=== PATIENT | male | born 1975 | race African-American/Black ===

== ENCOUNTER 2023-07-24 20:17 | Inpatient (IN) | payer BC ==
[2023-07-24 21:03] LABS: #Basophils 0.1 10x3/uL (0.0-0.2); #Eosinphils 0.3 10x3/uL (0.0-0.5); #Monocytes 0.5 10x3/uL (0.0-1.1); %Basophils 0.6 % (0.0-2.0); %Eosinophils 3.8 % (0.0-6.0); %Lymphocytes 17.5 % (18.0-47.0); %Monocytes 6.1 % (0.0-10.0); %Neutrophils 71.8 % (40.0-75.0); Hematocrit 25.7 % (38.8-50.0); Hemoglobin 8.1 g/dL (13.5-17.5); Mean Corpuscular HGB CONC 31.5 g/dL (32.0-36.0); Mean Corpuscular Hemoglobin 23.1 pg (27.0-33.0); Mean Corpuscular Volume 73.2 fl (81.2-95.1); Mean Platelet Volume 12.1 fl (7.4-10.4); Platelet Count 291 10x3/uL (150-450); RBC Distribution Width 15.6 % (11.5-14.5); Red Blood Cell (RBC) Count 3.51 10x6/uL (4.32-5.72); White Blood Cell (WBC) Count 8.4 10x3/uL (3.5-10.5)
[2023-07-24 21:10] LABS: PTT 27.1 sec (22.0-33.0); Prothrombin Time 10.3 sec (9.5-12.1)
[2023-07-24 21:13] LABS: ALT (SGPT) 27 U/L (8-55); AST (SGOT) 17 U/L (5-34); Albumin 3.4 g/dL (3.5-5.0); Alkaline Phosphatase 148 U/L (40-110); Anion Gap 15 mmol/L (10-20); BUN (Urea Nitrogen) 70 mg/dL (8.9-20.6); Bilirubin, Total 0.3 mg/dL (0.2-1.2); Calc. Creatinine Clearance 0 mL/min (70-130); Calcium 8.4 mg/dL (7.8-10.44); Carbon Dioxide 21 mmol/L (22-29); Chloride 112 mmol/L (98-107); Estimated GFR 14; Glucose 142 mg/dL (70-105); Magnesium 1.9 mg/dL (1.6-2.6); Potassium 4.5 mmol/L (3.5-5.1); Protein, Total 6.4 g/dL (6.0-8.3); Sodium 143 mmol/L (136-145)
[2023-07-24 21:19] LABS: Troponin I 0.026 ng/mL (< 0.028)
[2023-07-24] MEDS ORDERED: Calcium Carbonate 500 MG ChewTAB PO PRN (22:09)
[2023-07-24] MEDS ORDERED: Dextrose 5% in Water 1,000 ML IV PRN (22:09)
[2023-07-24] MEDS ORDERED: Glucagon 1 MG/ML KIT IM PRN (22:09)
[2023-07-24] MEDS ORDERED: HYDROcodone/Acetaminophen 5/325 mg Tablet PO PRN (22:09)
[2023-07-24] MEDS ORDERED: Ondansetron PF 4 MG/2 ML Vial IVP PRN (22:09)
[2023-07-24] MEDS ORDERED: Senokot S 8.6-50 MG TAB PO PRN (22:09)
[2023-07-24] MEDS ORDERED: Dextrose 50% Abboject 50 ML SYRINGE SLOW IVP PRN (22:09)
[2023-07-24] MEDS ORDERED: Acetaminophen 325 MG TAB PO PRN (22:09)
[2023-07-24] MEDS ORDERED: Furosemide 40 MG (4 mL) VIAL ONE (22:21)
[2023-07-24] MEDS: Albumin 25% 25 GM (100 mL) BOT IVPB SCH (23:16)
[2023-07-25 00:28] VITALS: BMI 50.3
[2023-07-25] MEDS: Nitroglycerin 2% Ointment 1 INCH/1 GM Packet TOP SCH (01:31)
[2023-07-25 05:57] LABS: #Basophils 0.1 10x3/uL (0.0-0.2); #Eosinphils 0.3 10x3/uL (0.0-0.5); #Monocytes 0.7 10x3/uL (0.0-1.1); #Neutrophils 5.8 10x3/uL (1.5-8.4); %Basophils 0.6 % (0.0-2.0); %Eosinophils 3.8 % (0.0-6.0); %Monocytes 7.9 % (0.0-10.0); %Neutrophils 68.3 % (40.0-75.0); Hematocrit 23.3 % (38.8-50.0); Hemoglobin 7.4 g/dL (13.5-17.5); Mean Corpuscular HGB CONC 31.8 g/dL (32.0-36.0); Mean Corpuscular Hemoglobin 23.1 pg (27.0-33.0); Mean Corpuscular Volume 72.6 fl (81.2-95.1); Mean Platelet Volume 12.3 fl (7.4-10.4); Platelet Count 279 10x3/uL (150-450); RBC Distribution Width 15.3 % (11.5-14.5); Red Blood Cell (RBC) Count 3.21 10x6/uL (4.32-5.72); White Blood Cell (WBC) Count 8.5 10x3/uL (3.5-10.5)
[2023-07-25] MEDS: Furosemide 40 MG (4 mL) VIAL SLOW IVP SCH (05:58)
[2023-07-25 06:11] LABS: Chloride 112 mmol/L (98-107); Potassium 4.4 mmol/L (3.5-5.1); Sodium 144 mmol/L (136-145)
[2023-07-25 06:12] LABS: Anion Gap 14 mmol/L (10-20); BUN (Urea Nitrogen) 70 mg/dL (8.9-20.6); Calc. Creatinine Clearance 44 mL/min (70-130); Carbon Dioxide 22 mmol/L (22-29); Estimated GFR 15; Glucose 142 mg/dL (70-105); Magnesium 1.9 mg/dL (1.6-2.6)
[2023-07-25 06:19] LABS: Troponin I 0.019 ng/mL (< 0.028)
[2023-07-25] MEDS ORDERED: Heparin 5,000 UNITS/ML VIAL SC SCH (09:00)
[2023-07-25] MEDS: Carvedilol 25 MG TAB PO SCH (09:14)
[2023-07-25] MEDS: Ferrous Sulfate 325 MG TAB PO SCH (09:14)
[2023-07-25] MEDS: Ranolazine ER 500 MG TAB PO SCH (09:15)
[2023-07-25] MEDS: Sertraline 100 MG TAB PO SCH (09:15)
[2023-07-25] MEDS: glipiZIDE 5 MG TAB PO SCH (09:15)
[2023-07-25] MEDS: Atorvastatin Calcium 40 MG TAB PO SCH (09:15)
[2023-07-25] MEDS: Aspirin Chewable 81 MG TAB PO SCH (09:15)
[2023-07-25] MEDS: hydrALAZINE 25 MG TAB PO SCH (09:15)
[2023-07-25] MEDS: EPOETIN ALFA-EPBX (ESRD) 4,000 UNITS/ML VIAL SC SCH (10:28)
[2023-07-25] MEDS: Folic Acid/Vit B Comp W-C PO SCH (10:39)
[2023-07-25] MEDS: EPOETIN ALFA-EPBX (ESRD) 10,000 UNITS/ML VIAL SC SCH (10:39)
[2023-07-25] MEDS: Furosemide 100 MG (10 mL) VIAL SLOW IVP SCH (16:16)
[2023-07-25] MEDS: HumuLIN 70/30 (300 UNITS/3 ML VIAL) SC SCH (16:17)
[2023-07-25] MEDS: Sertraline 25 MG TAB PO SCH (20:57)
[2023-07-25] MEDS: Minoxidil 2.5 MG TAB PO SCH (20:57)
[2023-07-26 05:28] LABS: #Basophils 0.1 10x3/uL (0.0-0.2); #Eosinphils 0.4 10x3/uL (0.0-0.5); #Monocytes 0.8 10x3/uL (0.0-1.1); #Neutrophils 6.6 10x3/uL (1.5-8.4); %Basophils 0.5 % (0.0-2.0); %Eosinophils 3.9 % (0.0-6.0); %Lymphocytes 18.9 % (18.0-47.0); %Monocytes 8.1 % (0.0-10.0); %Neutrophils 68.2 % (40.0-75.0); Hematocrit 25.3 % (38.8-50.0); Hemoglobin 7.8 g/dL (13.5-17.5); Mean Corpuscular HGB CONC 30.8 g/dL (32.0-36.0); Mean Corpuscular Hemoglobin 22.1 pg (27.0-33.0); Mean Corpuscular Volume 71.7 fl (81.2-95.1); Mean Platelet Volume 11.9 fl (7.4-10.4); Platelet Count 300 10x3/uL (150-450); RBC Distribution Width 15.4 % (11.5-14.5); Red Blood Cell (RBC) Count 3.53 10x6/uL (4.32-5.72); White Blood Cell (WBC) Count 9.7 10x3/uL (3.5-10.5)
[2023-07-26 05:40] LABS: Anion Gap 14 mmol/L (10-20); BUN (Urea Nitrogen) 79 mg/dL (8.9-20.6); Calc. Creatinine Clearance 39 mL/min (70-130); Calcium 8.8 mg/dL (7.8-10.44); Carbon Dioxide 23 mmol/L (22-29); Chloride 111 mmol/L (98-107); Estimated GFR 13; Glucose 102 mg/dL (70-105); Iron 35 ug/dL (65-175); Iron Binding Capacity, Total 194 mcg/dL (261-462); Potassium 4.4 mmol/L (3.5-5.1); Sodium 144 mmol/L (136-145)
[2023-07-26 06:24] LABS: Microcytosis SLIGHT = 6-15 cells (100X) (0-5/hpf); Platelet Adequacy Comment Appears Adequate
[2023-07-26] MEDS: hydrALAZINE 25 MG TAB PO SCH ×2 (10:31→20:59)
[2023-07-26] MEDS: Ferrous Sulfate 325 MG TAB PO SCH (17:09)
[2023-07-27] MEDS: Guaifenesin DM 100-10/5 ML UDCUP PO PRN (00:35)
[2023-07-27 04:25] LABS: HBSAg Index 0.21 S/CO (0-0.99); Hep B Surf Ag Non-Reactive S/CO (NonReactive)
[2023-07-27] MEDS ORDERED: EPINEPHrine 1 MG/ML VIAL ONE (08:53)
[2023-07-27] MEDS ORDERED: Bupivacaine 0.25% HCL 30 ML VIAL ONE (08:54)
[2023-07-27] MEDS ORDERED: CEFAZOLIN 2 GM VIAL ONE (10:01)
[2023-07-27] MEDS ORDERED: fentaNYL 50 mcg/mL 1 mL Vial ONE ×2 (10:09→10:40)
[2023-07-27] MEDS ORDERED: Lidocaine 2% PF 5 ML VIAL ONE (10:09)
[2023-07-27] MEDS ORDERED: PROPOFOL 20 ML ONE ×2 (10:09→10:14)
[2023-07-27] MEDS ORDERED: ePHEDrine Sulfate 50 MG/10 ML VIAL ONE ×2 (10:29→10:52)
[2023-07-27 14:08] LABS: Hep B Core Total Ab Non-Reactive (NonReactive); Hep B Core Total Index 0.08 S/CO (0-0.79); Hep C IgG Ab Non-Reactive S/CO (NonReactive)
[2023-07-27 14:10] LABS: HBSAB Concentration 64.97 mIU/mL; Hep B Surf AB Reactive (NonReactive)
[2023-07-27] MEDS: EPOETIN ALFA-EPBX (ESRD) 10,000 UNITS/ML VIAL SC SCH ×2 (17:33→18:27)
[2023-07-27] MEDS: Tuberculin PPD 0.1 ML VIAL I-DERMAL SCH ×2 (17:33→18:29)
[2023-07-27] MEDS: HumaLOG 300 UNITS/3 ML VIAL SC PRN (22:04)
[2023-07-28 05:16] LABS: #Monocytes 0.7 10x3/uL (0.0-1.1); #Neutrophils 9.5 10x3/uL (1.5-8.4); %Basophils 0.3 % (0.0-2.0); %Eosinophils 0.1 % (0.0-6.0); %Lymphocytes 7.7 % (18.0-47.0); %Monocytes 6.1 % (0.0-10.0); %Neutrophils 85.4 % (40.0-75.0); Hematocrit 26.4 % (38.8-50.0); Hemoglobin 8.4 g/dL (13.5-17.5); Mean Corpuscular HGB CONC 31.8 g/dL (32.0-36.0); Mean Corpuscular Hemoglobin 22.8 pg (27.0-33.0); Mean Corpuscular Volume 71.7 fl (81.2-95.1); Mean Platelet Volume 12.6 fl (7.4-10.4); Platelet Count 323 10x3/uL (150-450); RBC Distribution Width 15.3 % (11.5-14.5); Red Blood Cell (RBC) Count 3.68 10x6/uL (4.32-5.72); White Blood Cell (WBC) Count 11.1 10x3/uL (3.5-10.5)
[2023-07-28 05:24] LABS: Anion Gap 15 mmol/L (10-20); BUN (Urea Nitrogen) 71 mg/dL (8.9-20.6); Calc. Creatinine Clearance 37 mL/min (70-130); Calcium 8.9 mg/dL (7.8-10.44); Carbon Dioxide 24 mmol/L (22-29); Chloride 105 mmol/L (98-107); Estimated GFR 12; Glucose 225 mg/dL (70-105); Potassium 4.8 mmol/L (3.5-5.1); Sodium 139 mmol/L (136-145)
[2023-07-28] MEDS: Losartan 25 MG TAB PO SCH (08:57)
[2023-07-29 05:17] LABS: Anion Gap 15 mmol/L (10-20); BUN (Urea Nitrogen) 55 mg/dL (8.9-20.6); Calc. Creatinine Clearance 42 mL/min (70-130); Calcium 8.9 mg/dL (7.8-10.44); Carbon Dioxide 25 mmol/L (22-29); Chloride 105 mmol/L (98-107); Estimated GFR 14; Glucose 167 mg/dL (70-105); Potassium 4.5 mmol/L (3.5-5.1); Sodium 140 mmol/L (136-145)
[2023-07-29 05:33] LABS: #Basophils 0.1 10x3/uL (0.0-0.2); #Eosinphils 0.2 10x3/uL (0.0-0.5); #Monocytes 0.8 10x3/uL (0.0-1.1); #Neutrophils 6.2 10x3/uL (1.5-8.4); %Basophils 0.6 % (0.0-2.0); %Eosinophils 2.3 % (0.0-6.0); %Lymphocytes 23.9 % (18.0-47.0); %Monocytes 8.4 % (0.0-10.0); %Neutrophils 64.5 % (40.0-75.0); Anisocytosis SLIGHT = 6-15 cells (100X) (0-5/hpf); Hematocrit 26.9 % (38.8-50.0); Hemoglobin 8.3 g/dL (13.5-17.5); Mean Corpuscular HGB CONC 30.9 g/dL (32.0-36.0); Mean Corpuscular Hemoglobin 22.3 pg (27.0-33.0); Mean Corpuscular Volume 72.1 fl (81.2-95.1); Mean Platelet Volume 12.3 fl (7.4-10.4); Platelet Count 322 10x3/uL (150-450); RBC Distribution Width 15.6 % (11.5-14.5); Red Blood Cell (RBC) Count 3.73 10x6/uL (4.32-5.72); White Blood Cell (WBC) Count 9.6 10x3/uL (3.5-10.5)
[2023-07-29 05:34] LABS: Hypochromia SLIGHT = 6-15 cells (100X) (0-5/hpf); Microcytosis SLIGHT = 6-15 cells (100X) (0-5/hpf); Ovalocytes SLIGHT = 2-5 cells (100X) (0-1/hpf); Polychromasia SLIGHT = 2-3 cells (100X) (0-2/hpf)
[2023-07-30 03:46] LABS: #Basophils 0.1 10x3/uL (0.0-0.2); #Eosinphils 0.4 10x3/uL (0.0-0.5); #Monocytes 0.8 10x3/uL (0.0-1.1); #Neutrophils 6.4 10x3/uL (1.5-8.4); %Basophils 0.7 % (0.0-2.0); %Eosinophils 3.7 % (0.0-6.0); %Neutrophils 63.3 % (40.0-75.0); Hematocrit 28.5 % (38.8-50.0); Hemoglobin 9.2 g/dL (13.5-17.5); Mean Corpuscular HGB CONC 32.3 g/dL (32.0-36.0); Mean Corpuscular Hemoglobin 23.5 pg (27.0-33.0); Mean Corpuscular Volume 72.7 fl (81.2-95.1); Mean Platelet Volume 11.9 fl (7.4-10.4); Platelet Count 345 10x3/uL (150-450); RBC Distribution Width 15.5 % (11.5-14.5); Red Blood Cell (RBC) Count 3.92 10x6/uL (4.32-5.72); White Blood Cell (WBC) Count 10.1 10x3/uL (3.5-10.5)
[2023-07-30 04:20] LABS: Anion Gap 16 mmol/L (10-20); BUN (Urea Nitrogen) 65 mg/dL (8.9-20.6); Calc. Creatinine Clearance 32 mL/min (70-130); Calcium 9.4 mg/dL (7.8-10.44); Carbon Dioxide 25 mmol/L (22-29); Chloride 102 mmol/L (98-107); Estimated GFR 13; Glucose 83 mg/dL (70-105); Potassium 4.2 mmol/L (3.5-5.1); Sodium 139 mmol/L (136-145)
[2023-07-30 05:52] LABS: Hypochromia SLIGHT = 6-15 cells (100X) (0-5/hpf); Microcytosis SLIGHT = 6-15 cells (100X) (0-5/hpf); Platelet Adequacy Comment Appears Adequate
[2023-07-30] MEDS: READ PPD TEST SITE PO SCH (09:13)
[2023-07-31 03:29] LABS: #Basophils 0.1 10x3/uL (0.0-0.2); #Eosinphils 0.5 10x3/uL (0.0-0.5); #Monocytes 1.1 10x3/uL (0.0-1.1); #Neutrophils 6.6 10x3/uL (1.5-8.4); %Basophils 0.7 % (0.0-2.0); %Eosinophils 4.2 % (0.0-6.0); %Lymphocytes 24.1 % (18.0-47.0); %Monocytes 10.1 % (0.0-10.0); %Neutrophils 60.4 % (40.0-75.0); Hematocrit 27.1 % (38.8-50.0); Hemoglobin 8.7 g/dL (13.5-17.5); Mean Corpuscular HGB CONC 32.1 g/dL (32.0-36.0); Mean Corpuscular Hemoglobin 23.1 pg (27.0-33.0); Mean Corpuscular Volume 72.1 fl (81.2-95.1); Platelet Count 322 10x3/uL (150-450); RBC Distribution Width 15.2 % (11.5-14.5); Red Blood Cell (RBC) Count 3.76 10x6/uL (4.32-5.72)
[2023-07-31 03:56] LABS: Platelet Adequacy Comment Appears Adequate
[2023-07-31 03:57] LABS: Hypochromia SLIGHT = 6-15 cells (100X) (0-5/hpf); Microcytosis SLIGHT = 6-15 cells (100X) (0-5/hpf)
[2023-07-31 04:26] LABS: Anion Gap 15 mmol/L (10-20); BUN (Urea Nitrogen) 47 mg/dL (8.9-20.6); Calc. Creatinine Clearance 42 mL/min (70-130); Carbon Dioxide 25 mmol/L (22-29); Chloride 102 mmol/L (98-107); Estimated GFR 15; Glucose 107 mg/dL (70-105); Potassium 4.4 mmol/L (3.5-5.1); Sodium 138 mmol/L (136-145)
[2023-07-31 13:05] VITALS: BP 141/73; TEMP 99.3
== END 2023-07-31 13:54 | disposition home or self-care (01) | DRG 673 ==
LOC: CSHERS 20:17 → CSHERHOLD 21:58 → CSHTELE 07-25 01:03
PROVIDERS: ADMIT Student in an Organized Health Care Education/Training Program; ATTEND Internal Medicine
PROC: 30233J1 Transfusion of Nonautologous Serum Albumin into Peripheral Vein, Percutaneous Approach (ICD-10-PCS; 2023-07-24)
PROC: 0JH63XZ Insertion of Tunneled Vascular Access Device into Chest Subcutaneous Tissue and Fascia, Percutaneous Approach (ICD-10-PCS; principal; 2023-07-27)
PROC: 3E033XZ Introduction of Vasopressor into Peripheral Vein, Percutaneous Approach (ICD-10-PCS; 2023-07-27)
PROC: B5131ZA Fluoroscopy of Right Jugular Veins using Low Osmolar Contrast, Guidance (ICD-10-PCS; 2023-07-27)
DX: N17.9 Acute kidney failure, unspecified (principal); I50.33 Acute on chronic diastolic (congestive) heart failure; I13.2 Hypertensive heart and chronic kidney disease with heart failure and with stage 5 chronic kidney disease, or end stage renal disease; E87.20 Acidosis, unspecified; Z68.42 Body mass index [BMI] 45.0-49.9, adult; N18.6 End stage renal disease; E11.22 Type 2 diabetes mellitus with diabetic chronic kidney disease; Z88.2 Allergy status to sulfonamides; I25.10 Atherosclerotic heart disease of native coronary artery without angina pectoris; K21.9 Gastro-esophageal reflux disease without esophagitis; E78.5 Hyperlipidemia, unspecified; F41.9 Anxiety disorder, unspecified; Z87.891 Personal history of nicotine dependence; Z79.82 Long term (current) use of aspirin; Z79.899 Other long term (current) drug therapy; Z79.4 Long term (current) use of insulin; G47.33 Obstructive sleep apnea (adult) (pediatric); E66.01 Morbid (severe) obesity due to excess calories; D50.9 Iron deficiency anemia, unspecified
CPT/HCPCS: 36415; 36416; 71045; 80048; 80053; 82728; 83540; 83550; 83735; 83880; 84443; 84484; 85025; 85610; 85730; 86580; 86704; 90935; 93005; 96374; C1750; G0257; J0171; J0665; J1642; J1815; J1940; J2001; J2704; J3010; P9047; Q5105